=== PATIENT | female | born 2000 | race African-American/Black ===

== ENCOUNTER 2024-02-24 01:15 | Emergency (ER) | payer OTHER | END 2024-02-24 03:00 | disposition home or self-care (01) | LOC: CSHERS 01:15 | DX: O34.81 Maternal care for other abnormalities of pelvic organs, first trimester (principal); N83.202 Unspecified ovarian cyst, left side; Z3A.01 Less than 8 weeks gestation of pregnancy | CPT/HCPCS: 76856 ==